=== PATIENT | male | born 1975 | race Caucasian/White ===

== ENCOUNTER 2018-02-19 11:09 | Emergency (ER) | payer OTHER ==
[~2018-02-19] VITALS: Ht 182.9 cm; Wt 77.6 kg
[2018-02-19 11:18] VITALS: BP 124/77
[2018-02-19] MEDS ORDERED: LIDOCAINE 2%, 20ML SQ ONE (11:30)
[2018-02-19] MEDS ORDERED: LIDOCAINE-MPF 2% ,5ML ONE (11:47)
[2018-02-19] MEDS ORDERED: BACITRACIN ZINC OINT 500U/GM, 0.9 GM ONE (12:28)
== END 2018-02-19 12:40 | disposition home or self-care (01) ==
LOC: ED 12:34
DX: S61.216A Laceration without foreign body of right little finger without damage to nail, initial encounter (principal); W26.0XXA Contact with knife, initial encounter; Y93.89 Activity, other specified; Y92.410 Unspecified street and highway as the place of occurrence of the external cause; Y99.8 Other external cause status
CPT/HCPCS: 12031; 99284; J3490; 12001; 99283

== ENCOUNTER 2018-09-02 05:59 | Emergency (ER) | payer SELFPAY ==
[~2018-09-02] VITALS: Ht 182.9 cm; Wt 79.6 kg
[2018-09-02 06:04] VITALS: BP 112/70
[2018-09-02] MEDS ORDERED: DICYCLOMINE 10 MG/ML, 2ML IM ONE (06:30)
[2018-09-02] MEDS ORDERED: SODIUM CHLORIDE 0.9% 1,000ML IVBOLUS ONE (06:30)
[2018-09-02] MEDS ORDERED: ONDANSETRON 2MG/ML, 2ML IVPush ONE (06:30)
[2018-09-02] MEDS ORDERED: DICYCLOMINE 10 MG/ML, 2ML ONE (06:39)
[2018-09-02] MEDS ORDERED: ONDANSETRON 2MG/ML, 2ML ONE (06:39)
[2018-09-02 06:47] LABS: BASOPHILS # (AUTO) 0.02 x10^3/uL (0-0.1); BASOPHILS % (AUTO) 0 % (0-1); EOSINOPHILS # (AUTO) 0.07 x10^3/uL (0-0.4); EOSINOPHILS % (AUTO) 1 % (1-7); LYMPHOCYTES % (AUTO) 9 % (22-44); MD NO; MEAN CORPUSCULAR HGB CONC 34.2 g/dL (33.2-36.2); MEAN CORPUSCULAR VOLUME 90.7 fL (81-97); MEAN PLATELET VOLUME 7.8 fL (7.4-10.4); MONOCYTES # (AUTO) 0.54 x10^3/uL (0.2-0.8); MONOCYTES % (AUTO) 5 % (2-9); NEUTROPHILS # (AUTO) 9.17 x10^3/uL (1.8-6.8); NEUTROPHILS % (AUTO) 85 % (42-75); PLATELET COUNT 211 x10^3/uL (130-400); RED BLOOD COUNT 5.29 x10^6/uL (4.38-5.82); RED CELL DISTRIBUTION WIDTH 14.2 % (9.4-14.8)
[2018-09-02 06:58] LABS: ALANINE AMINOTRANSFERASE 66 U/L (12-78); ANION GAP 8 mmol/L (5-15); CHLORIDE 109 mmol/L (98-107); CREATININE 0.76 mg/dL (0.7-1.3)
[2018-09-02 07:00] LABS: ALKALINE PHOSPHATASE 89 U/L (45-117); BILIRUBIN,TOTAL 0.3 mg/dL (0.2-1.0); TOTAL PROTEIN 8.2 g/dL (6.4-8.2)
== END 2018-09-02 08:48 | disposition home or self-care (01) ==
LOC: ED 08:47
DX: R11.2 Nausea with vomiting, unspecified (principal); R19.7 Diarrhea, unspecified; E86.0 Dehydration; F17.210 Nicotine dependence, cigarettes, uncomplicated
CPT/HCPCS: 36415; 80053; 83690; 85025; 96361; 96372; 96374; 99284; J0500; J2405; J7030

== ENCOUNTER 2020-06-23 18:10 | Inpatient (IN) | payer MEDICAID ==
[~2020-06-23] VITALS: Ht 182.9 cm; Wt 85.3 kg
[2020-06-23] MEDS ORDERED: ACETAMINOPHEN 500 MG TABLET PO ONE (19:00)
[2020-06-23] MEDS ORDERED: SODIUM CHLORIDE FLUSH 10ML SYR IVF ONE (19:00)
[2020-06-23 19:25] LABS: ALANINE AMINOTRANSFERASE 32 U/L (12-78); ALBUMIN 3.4 g/dL (3.4-5.0); ANION GAP 8 mmol/L (5-15); CHLORIDE 105 mmol/L (98-107); CREATININE 0.92 mg/dL (0.7-1.3)
[2020-06-23 19:28] LABS: ALKALINE PHOSPHATASE 76 U/L (45-117); BILIRUBIN,TOTAL 0.4 mg/dL (0.2-1.0); TOTAL PROTEIN 8.1 g/dL (6.4-8.2)
[2020-06-23 19:29] LABS: BASOPHILS # (AUTO) 0.03 x10^3/uL (0-0.1); BASOPHILS % (AUTO) 0 % (0-1); EOSINOPHILS % (AUTO) 0 % (1-7); LYMPHOCYTES # (AUTO) 0.94 x10^3/uL (1-3.4); LYMPHOCYTES % (AUTO) 9 % (22-44); MD NO; MEAN CORPUSCULAR HEMOGLOBIN 30.2 pg (27.5-34.5); MEAN CORPUSCULAR HGB CONC 33.8 g/dL (33.2-36.2); MEAN CORPUSCULAR VOLUME 89.5 fL (81-97); MEAN PLATELET VOLUME 7.9 fL (7.4-10.4); MONOCYTES # (AUTO) 0.94 x10^3/uL (0.2-0.8); MONOCYTES % (AUTO) 9 % (2-9); NEUTROPHILS # (AUTO) 8.63 x10^3/uL (1.8-6.8); NEUTROPHILS % (AUTO) 82 % (42-75); PLATELET COUNT 232 x10^3/uL (130-400); RED BLOOD COUNT 4.66 x10^6/uL (4.38-5.82); RED CELL DISTRIBUTION WIDTH 13.8 % (9.4-14.8)
--- NOTE | 2020-06-23 20:09 | NUR ---
pt called back to room
[2020-06-23] MEDS ORDERED: ACETAMINOPHEN 500 MG TABLET ONE (20:11)
--- NOTE | 2020-06-23 20:18 | NUR ---
THIS IS A 45Y M THAT PRESENTS TO [facility] FOR PAIN SWELLING AND REDNESS IN HIS L [place], PT STS STARTED WITH A SCRATCH AND HE THOUGHT IT HEALED BUT HAS NOT IMPROVED. PT ALSO REPORTS DIARRHEA BUT LAST BM WAS TWO-THREE DAYS AGO. PT RESTING ON [employer], CALL LIGHT IN REACH.
--- NOTE | 2020-06-23 20:29 | NUR ---
PIV STARTED, CULTURES DRAWN. PT MEDICATED PER DEC FOR FEVER. XRAY AT BEDSIDE NOW
--- NOTE | 2020-06-23 21:35 | NUR ---
PT RESTING ON [facility]O [facility]
--- NOTE | 2020-06-23 21:42 | NUR ---
ERP AT BEDSIDE FOR ASSESSMENT
[2020-06-23] MEDS ORDERED: VANCOMYCIN PER PHARMACY MC ONE (22:30)
[2020-06-23] MEDS ORDERED: SODIUM CHLORIDE 0.9% 1,000ML IVBOLUS ONE (22:30)
[2020-06-23] MEDS ORDERED: AMPICILLIN/SULBACTAM 3 GM in SODIUM CHLORIDE 0.9% 100 ML IV ONE (22:30)
[2020-06-23] MEDS ORDERED: VANCOMYCIN 1,600 MG in SODIUM CHLORIDE 0.9% 250 ML IV ONE (22:30)
[2020-06-23] MEDS ORDERED: MORPHINE SULFATE 4 MG/ML, 1ML IV PRN (22:30)
--- NOTE | 2020-06-23 22:39 | NUR ---
PIV BECAME DISPLACED, PT REMOVED, WILL START ANOTHER LINE AT THIS TIME
--- NOTE | 2020-06-23 22:59 | NUR ---
IV ABX INFUSING W/OUT DIFFICULTY, CULTURES DRAWN X2 PRIOR TO ABX START
[2020-06-23] MEDS ORDERED: ONDANSETRON ODT 4 MG PO PRN (23:00)
[2020-06-23] MEDS ORDERED: VANCOMYCIN PER PHARMACY MC PRN (23:00)
[2020-06-23] MEDS ORDERED: ACETAMINOPHEN 500 MG TABLET PO PRN (23:00)
[2020-06-23] MEDS ORDERED: BISACODYL 10 MG SUPP PR PRN (23:00)
[2020-06-23] MEDS ORDERED: POLYETHYLENE GLYCOL 17 GM PACKET PO PRN (23:00)
--- NOTE | 2020-06-23 23:05 | NUR ---
REPORT TO TOMMY SHAHID PT READY FOR TRANSPORT TO FLOOR AT THIS TIME
[2020-06-23 23:25] VITALS: BP 130/63
[2020-06-23] MEDS ORDERED: PHARMACOKINETIC MONITORING MC PRN (23:30)
[2020-06-23] MEDS ORDERED: PHARMACOKINETIC CONSULTATION MC ONE (23:30)
[2020-06-24] MEDS: morphine SULFATE 10 MG/ML, 1ML IVPush PRN ×4 (00:15→21:24)
[2020-06-24] MEDS: NICOTINE 14MG/24 HR PATCH.TD24 TD SCH ×2 (00:15→23:00)
[2020-06-24] MEDS: HEPARIN 5,000 UNITS/ML, 1ML SQ SCH ×3 (00:15→16:41)
[2020-06-24] MEDS: SODIUM CHLORIDE 0.9% 1,000 ML IV SCH ×3 (00:16→21:23)
[2020-06-24 00:45] VITALS: BP 96/69
[2020-06-24] MEDS: AMPICILLIN/SULBACTAM 3 GM in SODIUM CHLORIDE 0.9% 100 ML IV SCH ×4 (04:34→23:13)
[2020-06-24 07:30] VITALS: BP 105/69
[2020-06-24 07:33] LABS: ANION GAP 7 mmol/L (5-15); CALCIUM 8.7 mg/dL (8.5-10.1); CHLORIDE 111 mmol/L (98-107)
[2020-06-24] MEDS: SENNA/DOCUSATE TABLET PO SCH (07:34)
[2020-06-24 07:53] LABS: BASOPHILS # (AUTO) 0.04 x10^3/uL (0-0.1); BASOPHILS % (AUTO) 1 % (0-1); EOSINOPHILS # (AUTO) 0.03 x10^3/uL (0-0.4); EOSINOPHILS % (AUTO) 0 % (1-7); LYMPHOCYTES % (AUTO) 22 % (22-44); MD NO; MEAN CORPUSCULAR HEMOGLOBIN 29.8 pg (27.5-34.5); MEAN CORPUSCULAR HGB CONC 33.3 g/dL (33.2-36.2); MEAN CORPUSCULAR VOLUME 89.7 fL (81-97); MONOCYTES # (AUTO) 1.07 x10^3/uL (0.2-0.8); MONOCYTES % (AUTO) 13 % (2-9); NEUTROPHILS # (AUTO) 5.35 x10^3/uL (1.8-6.8); NEUTROPHILS % (AUTO) 65 % (42-75); PLATELET COUNT 206 x10^3/uL (130-400); RED BLOOD COUNT 4.44 x10^6/uL (4.38-5.82); RED CELL DISTRIBUTION WIDTH 13.5 % (9.4-14.8)
[2020-06-24] MEDS ORDERED: POTASSIUM CHLORIDE 20 MEQ TAB.ER.PRT PO ONE (08:30)
[2020-06-24] MEDS ORDERED: HYDROcodone/APAP 5/325 TABLET ONE (09:29)
[2020-06-24] MEDS: HYDROcodone/APAP 5/325 TABLET PO PRN ×4 (09:32→23:15)
[2020-06-24] MEDS: VANCOMYCIN 1,500 MG in SODIUM CHLORIDE 0.9% 250 ML IV SCH ×2 (12:33→23:13)
[2020-06-24 12:43] VITALS: BP 109/66
[2020-06-24 19:53] VITALS: BP 95/69
[2020-06-24] MEDS ORDERED: MORPHINE SULFATE 4 MG/ML, 1ML ONE (21:19)
[2020-06-25] MEDS: HEPARIN 5,000 UNITS/ML, 1ML SQ SCH ×3 (01:15→16:38)
[2020-06-25 01:17] VITALS: BP 100/65
[2020-06-25] MEDS: HYDROcodone/APAP 5/325 TABLET PO PRN ×4 (05:16→22:59)
[2020-06-25] MEDS: AMPICILLIN/SULBACTAM 3 GM in SODIUM CHLORIDE 0.9% 100 ML IV SCH ×4 (05:16→22:54)
[2020-06-25 07:30] VITALS: BP 107/71
[2020-06-25 07:35] LABS: BASOPHILS # (AUTO) 0.04 x10^3/uL (0-0.1); BASOPHILS % (AUTO) 1 % (0-1); EOSINOPHILS # (AUTO) 0.08 x10^3/uL (0-0.4); EOSINOPHILS % (AUTO) 1 % (1-7); LYMPHOCYTES # (AUTO) 1.81 x10^3/uL (1-3.4); LYMPHOCYTES % (AUTO) 24 % (22-44); MD NO; MEAN CORPUSCULAR HEMOGLOBIN 29.8 pg (27.5-34.5); MEAN CORPUSCULAR VOLUME 90.2 fL (81-97); MEAN PLATELET VOLUME 7.8 fL (7.4-10.4); MONOCYTES % (AUTO) 9 % (2-9); NEUTROPHILS # (AUTO) 5.07 x10^3/uL (1.8-6.8); NEUTROPHILS % (AUTO) 66 % (42-75); PLATELET COUNT 216 x10^3/uL (130-400); RED BLOOD COUNT 4.05 x10^6/uL (4.38-5.82)
[2020-06-25 07:42] LABS: ANION GAP 4 mmol/L (5-15); CALCIUM 8.7 mg/dL (8.5-10.1); CHLORIDE 111 mmol/L (98-107); CREATININE 0.59 mg/dL (0.7-1.3)
[2020-06-25] MEDS: SENNA/DOCUSATE TABLET PO SCH ×2 (09:00→09:10)
[2020-06-25] MEDS: SODIUM CHLORIDE 0.9% 1,000 ML IV SCH ×2 (09:10→16:37)
[2020-06-25] MEDS: VANCOMYCIN 1,500 MG in SODIUM CHLORIDE 0.9% 250 ML IV SCH (11:38)
[2020-06-25 13:44] VITALS: BP 117/77
[2020-06-25 19:47] VITALS: BP 122/72
[2020-06-25] MEDS ORDERED: MORPHINE SULFATE 4 MG/ML, 1ML ONE (22:07)
[2020-06-25] MEDS: morphine SULFATE 10 MG/ML, 1ML IVPush PRN (22:10)
[2020-06-25] MEDS: NICOTINE 14MG/24 HR PATCH.TD24 TD SCH (23:00)
[2020-06-26] MEDS: VANCOMYCIN 1,500 MG in SODIUM CHLORIDE 0.9% 250 ML IV SCH ×2 (00:05→11:33)
[2020-06-26 00:39] VITALS: BP 113/74
[2020-06-26] MEDS: HEPARIN 5,000 UNITS/ML, 1ML SQ SCH ×3 (01:41→17:19)
[2020-06-26] MEDS: AMPICILLIN/SULBACTAM 3 GM in SODIUM CHLORIDE 0.9% 100 ML IV SCH ×4 (05:28→23:20)
[2020-06-26] MEDS: SODIUM CHLORIDE 0.9% 1,000 ML IV SCH ×2 (05:28→17:19)
[2020-06-26 07:12] VITALS: BP 120/79
[2020-06-26] MEDS: SENNA/DOCUSATE TABLET PO SCH (07:53)
[2020-06-26] MEDS: HYDROcodone/APAP 5/325 TABLET PO PRN ×3 (07:54→23:11)
[2020-06-26 12:47] VITALS: BP 120/83
[2020-06-26 19:19] VITALS: BP 107/68
[2020-06-26] MEDS: NICOTINE 14MG/24 HR PATCH.TD24 TD SCH (23:00)
[2020-06-27] MEDS: HEPARIN 5,000 UNITS/ML, 1ML SQ SCH ×2 (00:04→08:58)
[2020-06-27] MEDS: SODIUM CHLORIDE 0.9% 1,000 ML IV SCH ×2 (02:46→12:04)
[2020-06-27 02:51] VITALS: BP 102/66
[2020-06-27] MEDS: AMPICILLIN/SULBACTAM 3 GM in SODIUM CHLORIDE 0.9% 100 ML IV SCH ×2 (05:04→11:02)
[2020-06-27] MEDS: HYDROcodone/APAP 5/325 TABLET PO PRN ×2 (05:04→11:02)
[2020-06-27] MEDS: SENNA/DOCUSATE TABLET PO SCH (07:14)
[2020-06-27 07:19] VITALS: BP 122/73
[2020-06-27 08:21] LABS: BASOPHILS % (AUTO) 2 % (0-1); EOSINOPHILS # (AUTO) 0.07 x10^3/uL (0-0.4); EOSINOPHILS % (AUTO) 1 % (1-7); LYMPHOCYTES # (AUTO) 1.98 x10^3/uL (1-3.4); LYMPHOCYTES % (AUTO) 31 % (22-44); MD NO; MEAN CORPUSCULAR HEMOGLOBIN 29.4 pg (27.5-34.5); MEAN CORPUSCULAR HGB CONC 32.7 g/dL (33.2-36.2); MEAN PLATELET VOLUME 7.5 fL (7.4-10.4); MONOCYTES # (AUTO) 0.47 x10^3/uL (0.2-0.8); MONOCYTES % (AUTO) 8 % (2-9); NEUTROPHILS % (AUTO) 59 % (42-75); PLATELET COUNT 266 x10^3/uL (130-400); RED BLOOD COUNT 4.08 x10^6/uL (4.38-5.82); RED CELL DISTRIBUTION WIDTH 13.9 % (9.4-14.8)
[2020-06-27 08:24] LABS: ANION GAP 3 mmol/L (5-15); CALCIUM 8.5 mg/dL (8.5-10.1); CHLORIDE 112 mmol/L (98-107); CREATININE 0.59 mg/dL (0.7-1.3)
[2020-06-27] MEDS: VANCOMYCIN 1,500 MG in SODIUM CHLORIDE 0.9% 250 ML IV SCH ×2 (12:04)
[2020-06-27 12:53] VITALS: BP 106/67
[2020-06-27 12:58] VITALS: BP 137/71
== END 2020-06-27 13:45 | disposition left against medical advice (07) | DRG 872 ==
LOC: ED 20:21 → EDIP 22:24 → 4NE 23:20
PROVIDERS: ADMIT Family Medicine; ATTEND Family Medicine
DX: A41.9 Sepsis, unspecified organism (principal); L03.116 Cellulitis of left lower limb; Z59.0 Homelessness; F17.210 Nicotine dependence, cigarettes, uncomplicated; F12.90 Cannabis use, unspecified, uncomplicated; Z53.29 Procedure and treatment not carried out because of patient's decision for other reasons
CPT/HCPCS: 36415; 71045; 80048; 80053; 80202; 83605; 85025; 87040; G0378; J0295; J1644; J3370; J2270; J7030; J7050